=== PATIENT | male | born 1970 | race Caucasian/White ===

== ENCOUNTER 2016-10-11 05:29 | Emergency (ER) | payer BC, OTHER ==
[2016-10-11] MEDS ORDERED: Aspirin Low Dose CHEW TAB* 81 MG PO ONE (05:54)
--- NOTE | 2016-10-11 06:06 | ED ---
I, Ron,Domo, scribed for Tevin Conde MD on 10/11/16 at 0557 . HPI Chest Pain - HPI Summary HPI Summary: This 46 y/o male presents to ED for mild diffuse CP since yesterday PM. CP is constant, waxing and waning, and currently rated 2/10. Pt took x2 baby ASA yesterday with little relief. Pt reports similar episode of CP in 1999 after which pt was prescribed with Accupril and NTG patch. He discontinued these medications in 2007. PMHx includes HTN that is currently well controlled, although pt expressed concern about some elevated blood pressure in last couple of weeks. He currently does not have primary care, and reports that last time he visited his regular doctor was October 2015. Plan of care involving bloodwork with cardiac enzyme is discussed with pt, and he is agreeable at this time. - History of Current Complaint Chief Complaint: EDChestPainROMI Time Seen by Provider: 10/11/16 05:30 Hx Obtained From: Patient, Medical Records Onset/Duration: Started Days Ago, Atraumatic, Still Present Timing: Constant Pain Intensity: 2 Pain Scale Used: 0-10 Numeric Chest Pain Location: Diffuse Chest Pain Radiates: No Character: Dull/Aching Aggravating Factor(s): Nothing Alleviating Factor(s): Nothing Associated Signs and Symptoms: Positive: Chest Pain. Negative: Shortness of Breath - Allergy/Home Medications Allergies/Adverse Reactions: Allergies Allergy/AdvReac Type Severity Reaction Status Date / Time Indomethacin Allergy Severe Headache Verified 01/09/16 09:10 Lisinopril Allergy See Comment Verified 12/11/15 20:13 PMH/Surg Hx/FS Hx/Imm Hx Endocrine/Hematology History: Denies: Hx Diabetes, Hx Thyroid Disease Cardiovascular History: Reports: Hx Hypertension - now controlled Denies: Hx Congestive Heart Failure, Hx Deep Vein Thrombosis, Hx Myocardial Infarction, Hx Pacemaker/ICD Respiratory History: Denies: Hx Asthma, Hx Chronic Obstructive Pulmonary Disease (COPD), Hx Lung Cancer, Hx Pneumonia, Hx Pulmonary Embolism GI History: Denies: Hx Gall Bladder Disease, Hx Gastrointestinal Bleed, Hx Ulcer, Hx Urosepsis History: Denies: Hx Kidney Stones, Hx Renal Disease Neurological History: Denies: Hx Dementia, Hx Migraine, Hx Seizures, Hx Transient Ischemic Attacks (TIA) Psychiatric History: Denies: Hx Anxiety, Hx Depression, Hx Schizophrenia, Hx Bipolar Disorder - Surgical History Surgery Procedure, Year, and Place: colonscopy x2; wisdom teeth Infectious Disease History: No Infectious Disease History: Denies: Hx Clostridium Difficile, Hx Hepatitis, Hx Human Immunodeficiency Virus (HIV), Hx of Known/Suspected MRSA, Hx Shingles, Hx Tuberculosis, Hx Known/ Suspected VRE, Hx Known/Suspected VRSA, History Other Infectious Disease, Traveled Outside the [place] in Last 30 Days - Family History Known Family History: Positive: Blood Disorder - Possible bleeding disorder in father, but at the time he had colon CA Negative: Seizure Disorder - Social History Alcohol Use: Rare Hx Substance Use: No Substance Use Type: Reports: None Hx Tobacco Use: No Smoking Status (MU): Never Smoked Tobacco Have You Smoked in the Last Year: No Review of Systems Negative: Fever Positive: Chest Pain Negative: Shortness Of Breath Negative: Anxious All Other Systems Reviewed And Are Negative: Yes Physical Exam Triage Information Reviewed: Yes Vital Signs On Initial Exam: Initial Vitals Temp Pulse Resp BP Pulse Ox 97.5 F 57 15 156/95 100 10/11/16 05:36 10/11/16 05:36 10/11/16 05:36 10/11/16 05:36 10/11/16 05:36 Vital Signs Reviewed: Yes Appearance: Positive: No Pain Distress - midly anxioius, Thin Skin: Positive: Warm Head/Face: Positive: Normal Head/Face Inspection Eyes: Positive: MARICEL ENT: Positive: Hearing grossly normal Neck: Positive: Supple Respiratory/Lung Sounds: Positive: Clear to Auscultation, Breath Sounds Present Cardiovascular: Positive: RRR Abdomen Description: Positive: Nontender, Soft Bowel Sounds: Positive: Present Musculoskeletal: Positive: Strength/ROM Intact Neurological: Positive: Sensory/Motor Intact, Alert, Oriented to Person Place, Time AVPU Assessment: Alert Diagnostics - Vital Signs Vital Signs Temp Pulse Resp BP Pulse Ox 10/11/16 05:36 97.5 F 57 15 156/95 100 - Laboratory Result Diagrams: 10/11/16 05:55 10/11/16 05:55 Lab Statement: Any lab studies that have been ordered have been reviewed, and results considered in the medical decision making process. - Radiology CXR Radiology Interpretation Completed By: ED Physician - See EMR for official reading - EKG 0537 Cardiac Rate: Bradycardia - 52 bpm EKG Rhythm: Sinus Bradycardia Re-Evaluation - Re-Evaluation First Eval Re-Evaluation Time: 06:48 - results d/w pt Change: Improved Chest Pain Course/Dx - Diagnoses Provider Diagnoses: Chest pain Discharge - Discharge Plan Condition: Stable Disposition: HOME Patient Education Materials: Chest Pain (ED) Referrals: [facility] [Outside] - 2 Days The documentation as recorded by the Ron keller Soohyun accurately reflects the service I personally performed and the decisions made by me, Tevin Conde MD.
[2016-10-11 06:26] LABS: Hematocrit 43 % (42-52); Hemoglobin 14.6 g/dl (14.0-18.0); Mean Corpuscular HGB Conc 34 g/dl (31-36); Mean Corpuscular Hemoglobin 32 pg (27-31); Mean Corpuscular Volume 93 fL (80-94); Mean Platelet Volume 8 um3 (7.4-10.4); Red Blood Count 4.58 10^6/ul (4.0-5.4); Red Cell Distribution Width 13 % (10.5-15)
[2016-10-11 06:38] LABS: Albumin 4.4 g/dL (3.2-5.2); BUN/Creatinine Ratio 17.7 (8-20); Calcium 9.6 mg/dL (8.6-10.3); Potassium 3.4 mmol/L (3.5-5.0); Total Bilirubin 0.9 mg/dL (0.2-1.0); Total Protein 7.4 g/dL (6.4-8.9)
[2016-10-11 06:39] LABS: Troponin I 0.01 ng/mL (<0.04)
[2016-10-11 06:48] VITALS: BP 125/78
--- NOTE | 2016-10-11 07:58 | RAD ---
INDICATION: Chest pain COMPARISON: Similar chest x-ray dated August 03, 2012 TECHNIQUE: PA and lateral views of the chest were obtained. FINDINGS: The heart and mediastinum are normal in size and contour. The lungs are grossly clear. There is no evidence of large pleural effusion. Visualized bones are normal for the patient's age. There is no radiographic evidence of free air beneath the diaphragm IMPRESSION: No radiographic evidence of acute cardiopulmonary disease.
== END 2016-10-11 06:48 | disposition home or self-care (01) ==
LOC: ED 05:29
DX: R07.9 Chest pain, unspecified (principal); Z86.79 Personal history of other diseases of the circulatory system
CPT/HCPCS: 36415; 71020; 80053; 83605; 84484; 85025; 93005; 99283; A9270-GY

== ENCOUNTER 2016-10-13 07:08 | Observation (INO) | payer BC, OTHER ==
[2016-10-13] MEDS ORDERED: Aspirin Low Dose CHEW TAB* 81 MG PO ONE (07:32)
[2016-10-13 07:52] LABS: Hematocrit 42 % (42-52); Hemoglobin 14.6 g/dl (14.0-18.0); Mean Corpuscular HGB Conc 35 g/dl (31-36); Mean Corpuscular Hemoglobin 32 pg (27-31); Mean Corpuscular Volume 93 fL (80-94); Mean Platelet Volume 8 um3 (7.4-10.4); Red Blood Count 4.49 10^6/ul (4.0-5.4); Red Cell Distribution Width 12 % (10.5-15); White Blood Count 6.7 10^3/ul (3.5-10.8)
[2016-10-13 08:17] LABS: Albumin 4.4 g/dL (3.2-5.2); BUN/Creatinine Ratio 12.4 (8-20); Calcium 9.6 mg/dL (8.6-10.3); EGFR African American 106.7 (>60); Magnesium 1.9 mg/dL (1.9-2.7); Potassium 4.2 mmol/L (3.5-5.0); Total Bilirubin 0.8 mg/dL (0.2-1.0); Total Protein 7.4 g/dL (6.4-8.9)
[2016-10-13] MEDS ORDERED: Nitroglycerin TAB 0.4 MG* 0.4 MG TAB SL PRN (09:23)
[2016-10-13] MEDS ORDERED: PROCHLORPERAZINE INJ 5 MG/ML 2 ML VIAL IV PRN (09:23)
[2016-10-13] MEDS ORDERED: Acetaminophen TAB* 325 MG PO PRN (09:23)
--- NOTE | 2016-10-13 12:25 | ED ---
Francis Bah Salem, scribed for Bayron Rivera MD on 10/13/16 at 0956 . HPI Chest Pain - HPI Summary HPI Summary: Patient is a 46 y/o male who presents to the ED with CP since this morning. He reports waking up at 10pm with SOB and at 0100 with throbbing CP for an hour and a half. Pain did not radiate and is alleviated by standing He states he took Aspirin 81 mg at 0200 and one sometime after that. He reports his pain then returned at 5am. He denies any recent long travels. Pt was in the hospital 2 days ago. - History of Current Complaint Chief Complaint: EDChestPainROMI Time Seen by Provider: 10/13/16 08:02 Hx Obtained From: Patient Onset/Duration: Started Hours Ago Initial Severity: Moderate Current Severity: Moderate Pain Intensity: 2 Pain Scale Used: 0-10 Numeric Aggravating Factor(s): Nothing Alleviating Factor(s): Position - standing. Associated Signs and Symptoms: Positive: Chest Pain, Other: - Anxiety.. Negative: Fever - Allergy/Home Medications Allergies/Adverse Reactions: Allergies Allergy/AdvReac Type Severity Reaction Status Date / Time Indomethacin Allergy Severe Headache Verified 01/09/16 09:10 Lisinopril Allergy See Comment Verified 12/11/15 20:13 PMH/Surg Hx/FS Hx/Imm Hx Endocrine/Hematology History: Denies: Hx Diabetes, Hx Thyroid Disease Cardiovascular History: Reports: Hx Hypertension - now controlled Denies: Hx Congestive Heart Failure, Hx Deep Vein Thrombosis, Hx Myocardial Infarction, Hx Pacemaker/ICD Respiratory History: Denies: Hx Asthma, Hx Chronic Obstructive Pulmonary Disease (COPD), Hx Lung Cancer, Hx Pneumonia, Hx Pulmonary Embolism GI History: Denies: Hx Gall Bladder Disease, Hx Gastrointestinal Bleed, Hx Ulcer, Hx Urosepsis History: Denies: Hx Kidney Stones, Hx Renal Disease Neurological History: Denies: Hx Dementia, Hx Migraine, Hx Seizures, Hx Transient Ischemic Attacks (TIA) Psychiatric History: Denies: Hx Anxiety, Hx Depression, Hx Schizophrenia, Hx Bipolar Disorder - Surgical History Surgery Procedure, Year, and Place: colonscopy x2; wisdom teeth Infectious Disease History: No Infectious Disease History: Denies: Hx Clostridium Difficile, Hx Hepatitis, Hx Human Immunodeficiency Virus (HIV), Hx of Known/Suspected MRSA, Hx Shingles, Hx Tuberculosis, Hx Known/ Suspected VRE, Hx Known/Suspected VRSA, History Other Infectious Disease, Traveled Outside the [place] in Last 30 Days - Family History Known Family History: Positive: Cardiac Disease - Mother. , Hypertension - father, Blood Disorder - Possible bleeding disorder in father, but at the time he had colon CA, Other - CA - father. Negative: Seizure Disorder - Social History Alcohol Use: Rare Hx Substance Use: No Substance Use Type: Reports: None Hx Tobacco Use: No Smoking Status (MU): Never Smoked Tobacco Have You Smoked in the Last Year: No Review of Systems Negative: Fever Positive: Chest Pain All Other Systems Reviewed And Are Negative: Yes Physical Exam - Summary Physical Exam Summary: The patient is well-nourished in no acute distress and in no acute pain. The skin is warm and dry and skin color reflects adequate perfusion. HEENT: The head is normocephalic and atraumatic. The pupils are equal and reactive. The conjunctivae are clear and without drainage. Nares are patent and without drainage. Mouth reveals moist mucous membranes and the throat is without erythema and exudate. The external ears are intact. The ear canals are patent and without drainage. The tympanic membranes are intact. Neck is supple with full range of motion and non-tender. There are no carotid bruits. Respiratory: Chest is non-tender. Lungs are clear to auscultation. No reproducible CP. Cardiovascular: Heart is regular rate and rhythm. There is no murmur or rub auscultated. There is no peripheral edema and pulses are symmetrical and equal. Abdomen: The abdomen is soft and non-tender. Musculoskeletal: There is no back pain noted. Extremities are non-tender with full range of motion. There is good capillary refill. There is no peripheral edema or calf tenderness elicited. Neurological: Patient is alert and oriented to person, place and time. The patient has symmetrical motor strength in all four extremities. Psychiatric: The patient has an appropriate affect and does not exhibit any depression, but is anxious. Triage Information Reviewed: Yes Vital Signs On Initial Exam: Initial Vitals Temp Pulse Resp BP Pulse Ox 96.9 F 54 20 123/83 100 10/13/16 07:16 10/13/16 07:16 10/13/16 07:16 10/13/16 07:16 10/13/16 07:16 Vital Signs Reviewed: Yes - Belle Coma Scale Coma Scale Total: 15 Diagnostics - Vital Signs Vital Signs Temp Pulse Resp BP Pulse Ox 10/13/16 07:33 52 15 100 10/13/16 07:31 141/78 10/13/16 07:16 96.9 F 54 20 123/83 100 - Laboratory Lab Results: Lab Results 10/13/16 10/13/16 10/13/16 Range/Units 07:40 07:40 07:40 WBC 6.7 (3.5-10.8) 10^3/ul RBC 4.49 (4.0-5.4) 10^6/ul Hgb 14.6 (14.0-18.0) g/dl Hct 42 (42-52) % MCV 93 (80-94) fL MCH 32 H (27-31) pg MCHC 35 (31-36) g/dl RDW 12 (10.5-15) % Plt Count 222 (150-450) 10^3/ul MPV 8 (7.4-10.4) um3 Neut % (Auto) 52.0 (38-83) % Lymph % (Auto) 36.3 (25-47) % George % (Auto) 7.3 (1-9) % Eos % (Auto) 3.8 (0-6) % Baso % (Auto) 0.6 (0-2) % Absolute Neuts (auto) 3.5 (1.5-7.7) 10^3/ul Absolute Lymphs (auto) 2.4 (1.0-4.8) 10^3/ul Absolute Monos (auto) 0.5 (0-0.8) 10^3/ul Absolute Eos (auto) 0.3 (0-0.6) 10^3/ul Absolute Basos (auto) 0 (0-0.2) 10^3/ul Absolute Nucleated RBC 0.01 10^3/ul Nucleated RBC % 0.1 Sodium 134 (133-145) mmol/L Potassium 4.2 (3.5-5.0) mmol/L Chloride 101 (101-111) mmol/L Carbon Dioxide 25 (22-32) mmol/L Anion Gap 8 (2-11) mmol/L BUN 12 (6-24) mg/dL Creatinine 0.97 (0.67-1.17) mg/dL Est GFR ( Amer) 106.7 (>60) Est GFR (Non-Af Amer) 83.0 (>60) BUN/Creatinine Ratio 12.4 (8-20) Glucose 101 H (70-100) mg/dL Lactic Acid 0.9 (0.5-2.0) mmol/L Calcium 9.6 (8.6-10.3) mg/dL Magnesium 1.9 (1.9-2.7) mg/dL Total Bilirubin 0.80 (0.2-1.0) mg/dL AST 26 (13-39) U/L ALT 23 (7-52) U/L Alkaline Phosphatase 61 (34-104) U/L Troponin I 0.00 (<0.04) ng/mL B-Natriuretic Peptide ( - 100) pg/mL Total Protein 7.4 (6.4-8.9) g/dL Albumin 4.4 (3.2-5.2) g/dL Globulin 3.0 (2-4) g/dL Albumin/Globulin Ratio 1.5 (1-3) 10/13/16 Range/Units 07:40 WBC (3.5-10.8) 10^3/ul RBC (4.0-5.4) 10^6/ul Hgb (14.0-18.0) g/dl Hct (42-52) % MCV (80-94) fL MCH (27-31) pg MCHC (31-36) g/dl RDW (10.5-15) % Plt Count (150-450) 10^3/ul MPV (7.4-10.4) um3 Neut % (Auto) (38-83) % Lymph % (Auto) (25-47) % George % (Auto) (1-9) % Eos % (Auto) (0-6) % Baso % (Auto) (0-2) % Absolute Neuts (auto) (1.5-7.7) 10^3/ul Absolute Lymphs (auto) (1.0-4.8) 10^3/ul Absolute Monos (auto) (0-0.8) 10^3/ul Absolute Eos (auto) (0-0.6) 10^3/ul Absolute Basos (auto) (0-0.2) 10^3/ul Absolute Nucleated RBC 10^3/ul Nucleated RBC % Sodium (133-145) mmol/L Potassium (3.5-5.0) mmol/L Chloride (101-111) mmol/L Carbon Dioxide (22-32) mmol/L Anion Gap (2-11) mmol/L BUN (6-24) mg/dL Creatinine (0.67-1.17) mg/dL Est GFR ( Amer) (>60) Est GFR (Non-Af Amer) (>60) BUN/Creatinine Ratio (8-20) Glucose (70-100) mg/dL Lactic Acid (0.5-2.0) mmol/L Calcium (8.6-10.3) mg/dL Magnesium (1.9-2.7) mg/dL Total Bilirubin (0.2-1.0) mg/dL AST (13-39) U/L ALT (7-52) U/L Alkaline Phosphatase (34-104) U/L Troponin I (<0.04) ng/mL B-Natriuretic Peptide 25 ( - 100) pg/mL Total Protein (6.4-8.9) g/dL Albumin (3.2-5.2) g/dL Globulin (2-4) g/dL Albumin/Globulin Ratio (1-3) Result Diagrams: 10/13/16 07:40 10/13/16 07:40 Lab Statement: Any lab studies that have been ordered have been reviewed, and results considered in the medical decision making process. - EKG 0726 EKG Interpretation: Sinus bradycardia @ [address] elevation. Normal axis. Chest Pain Course/Dx - Course Course Of Treatment: Pt has been here twice this week for CP, some exertional component. Nml EKG with no evidence of ST elevation. First troponin = 0.00. Will consult hospitalist for further evaluation to r/o PR. - Chest Pain Differential Diagnosis/HQI/PQRI: Acute PR, ACS, Angina, GI Disease, Other: - anxiety - Diagnoses Provider Diagnoses: CHEST PAIN,R/O ACS - Provider Notifications Discussed Care Of Patient With: Dr. Gee (hospitalist) @ [id number]. Discharge - Discharge Plan Condition: Stable Disposition: ADMITTED TO Health system documentation as recorded by the Francis keller Salem accurately reflects the service I personally performed and the decisions made by me, Bayron Rivera MD.
--- NOTE | 2016-10-13 12:55 | HP ---
HISTORY AND PHYSICAL: DATE OF ADMISSION: 10/13/16 TIME OF EVALUATION: 8:49 a.m. PRIMARY CARE PROVIDER: New primary care provider is Dr. Randy Oswald. CHIEF COMPLAINT: Chest pain. HISTORY OF PRESENT ILLNESS: Mr. Sanchez is a 46-year-old male with a past medical history of hypertension, diet controlled, who presented to the emergency room with complaints of chest pain. He states that the pain started 4 days ago, retrosternal, 3/10 intensity with no radiation, no alleviating or provoking factors. He states that he took a couple of aspirins with some relief and he describes a very stressful day at work. He went to bed feeling better, but the next day the pain happened again and he came to the emergency room for further evaluation. At that time, he had one troponin that was negative, and an EKG that showed no acute ischemic changes , and a chest x-ray that showed no radiographic evidence of acute cardiopulmonary disease. He was discharged home and he actually has an appointment to see Dr. Oswald on October 14. When he was discharged, he was feeling better and he actually went to the gym that same day. He was able to work out for 35 minutes on a stationary bike and he stated that he felt well enough. The next day, he returned to work and the episodes of chest pain resumed with the same characteristics. He got concerned and decided to come to the emergency room for further evaluation today. He denies palpitations, fever, chills, cough, or any significant dyspnea. He states that this morning, he felt a little short of breath but he realized that he was anxious because the pain had returned. He denies any recent traveling. No lower extremity edema. 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 He states that he was 60 pounds heavier at that time, and he had one episode of chest pain, but at that point his blood pressure was very high and he was told that he had "unstable angina." He was treated with medications and has lost a significant amount of weight since then and he states that now he only controls his blood pressure with diet, and even during these episodes of chest pain, he measured his blood pressure at home and he was normal. PAST MEDICAL HISTORY: Diet-controlled hypertension. MEDICATION LIST: None. ALLERGIES: With INDOMETHACIN, he experienced headache and with LISINOPRIL, he had "a throbbing in his neck." FAMILY HISTORY: Patient's father had hypertension and passed of colon cancer. Uncle had 3-vessel CABG at age 57. SOCIAL HISTORY: He denies any tobacco or drug use. He states that while in college, he used steroids and tried marijuana but denies any recent drug use. He states that sporadically he drinks beer, the last one was around Thanksgiving. REVIEW OF SYSTEMS: A 14-point review of systems was performed and all the pertinent positive and negative findings are in HPI. PHYSICAL EXAMINATION VITAL SIGNS: Temperature 96.9, heart rate is 53, respiratory rate is 12, oxygen saturation is 100% on room air, blood pressure is 131/80. GENERAL: The patient is a pleasant gentleman, lying in the ER stretcher, in no acute distress. HEENT: Pupils are equal. Moist mucous membranes. CVS: Normal S1, S2. Regular rate and rhythm. CHEST: Breath sounds present bilaterally with no added sounds. ABDOMEN: Soft, nontender, nondistended. Bowel sounds are present. EXTREMITIES: No edema. NEUROLOGIC: He is alert, awake, and oriented x3. He is able to move all 4 extremities. LABORATORY IMAGING DATA: The patient had a CBC that showed a WBC of 6.7, hemoglobin of 14.6, hematocrit 42, platelets of 222 with 52% neutrophils. Chemistries showed a sodium of 134, potassium of 4.2, chloride of 101, bicarb of 25, BUN of 12, creatinine of 0.9, glucose of 101, lactic acid of 0.9, calcium 9.6, magnesium of 1.9. LFT's are normal. Troponin is 0. EKG done on October 13 at 7:26 showed sinus bradycardia at 49 beats per minute with no significant ST-T changes. There is no significant change when compared to his prior EKG from October 11. There may be a suggestion of early repolarization. ASSESSMENT AND PLAN: Mr. Sanchez is a 46-year-old male with a past medical history of diet-controlled hypertension who presents to the emergency room for the second time in 3 days with complaints of retrosternal chest pain. 1. Chest pain, rule out acute coronary syndrome. The patient's chest pain is atypical at this point, especially because he has had chest pain on and off for 4 days with no change in his enzymes or EKG. He denies eating anything different, his pain is not related to exercise. He was actually able to exercise at the gym with no change in his pain, and he states that he is on this very intense regimen of exercise. At this point, he is going to be admitted to rule out acute coronary syndrome and we are going to push to stress test. He actually has a first-time appointment with Dr. Oswald tomorrow to establish primary care. 2. DVT prophylaxis, the patient has a score of 2 on the DVT Prophylaxis Risk Assessment Guide, and he will be started on subcutaneous heparin. 3. Code status is full. TIME SPENT: Approximately 50 minutes was spent with the patient interview, medical records review, physical examination to complete the admission. More than half this time was spent [id number] with the patient in coordination of care. CC: Dr. Randy Oswald* [id number]/[facility] #: [id number] THANG
[2016-10-13] MEDS ORDERED: Enoxaparin(*) 80 MG/0.8 ML SYR SUBCUT SCH (13:00)
--- NOTE | 2016-10-13 13:06 | PN ---
Hospitalist Progress Note ADDENDUM Called by RN - 2nd troponin 1.49, with no c/o chest pain at this time. Will start Lovenox. Cardiology consult requested with Dr. Schafer.
[2016-10-13] MEDS ORDERED: Heparin DRIP 25,000 UNITS(*) 25,000 UNITS/500 ML BAG IVPB SCH (13:45)
[2016-10-13] MEDS ORDERED: Heparin VIAL(*) 5000 UNITS/ML VIAL (FIVE THOUSAND) IV SCH (14:00)
[2016-10-13] MEDS ORDERED: Heparin VIAL(*) 5000 UNITS/ML VIAL (FIVE THOUSAND) SUBCUT SCH (14:00)
[2016-10-13 14:19] LABS: Hematocrit 44 % (42-52); Hemoglobin 14.9 g/dl (14.0-18.0); Mean Corpuscular HGB Conc 34 g/dl (31-36); Mean Corpuscular Hemoglobin 31 pg (27-31); Mean Corpuscular Volume 92 fL (80-94); Mean Platelet Volume 8 um3 (7.4-10.4); Red Blood Count 4.75 10^6/ul (4.0-5.4); Red Cell Distribution Width 13 % (10.5-15); White Blood Count 7.5 10^3/ul (3.5-10.8)
--- NOTE | 2016-10-13 16:48 | ECHO ---
Patient: JOHNATHAN SHULTZ [facility] Rec#: [id number] : 1970 Date: 10/13/2016 Age: 46y Height: 170.18 cm / 67.0 in Weight: 75.75 kg / 167.0 lbs Sex: M BSA: 1.87 Room#: [facility] Admit Date#: 10/13/2016 Type: Inpatient Referring: Jessika Gee MD Reading: Jose G Zamora MD Court Officer: Mabel Salcido [facility] Transthoracic Echocardiogram Indication: CP BP: 118/84 HR: 65 Rhythm: NSR Findings Technical Comments: The study quality is fair. Left Ventricle: The left ventricular chamber size is normal. Global left ventricular wall motion and contractility are within normal limits. There is normal left ventricular systolic function. The estimated ejection fraction is 55-60%. Normal left ventricular diastolic filling is observed. Left Atrium: The left atrial chamber size is normal. Right Ventricle: The right ventricular cavity size is normal. The right ventricular global systolic function is normal. Right Atrium: The right atrial cavity size is normal. There is evidence of an atrial septal aneurysm. Aortic Valve: The aortic valve is trileaflet. There is no evidence of aortic regurgitation. There is no evidence of aortic stenosis. Mitral Valve: The mitral valve leaflets are mildly thickened. There is a trace of mitral regurgitation. There is no evidence of mitral stenosis. Tricuspid Valve: The tricuspid valve leaflets are normal. There is trace tricuspid regurgitation. The tricuspid regurgitant jet is centrally directed. No pulmonary hypertension is noted. There is no tricuspid stenosis. Pulmonic Valve: The pulmonic valve appears normal. There is trace to mild pulmonic regurgitation. There is no pulmonic stenosis. Pericardium: The pericardium appears normal. Aorta: There is no dilatation of the ascending aorta. There is no dilatation of the aortic arch. There is mild dilatation of the aortic root. Pulmonary Artery: The main pulmonary artery appears normal. Venous: The venous system is not well visualized. Conclusions Global left ventricular wall motion and contractility are within normal limits. There is normal left ventricular systolic function. The estimated ejection fraction is 55-60%. No significant valvular disease: There is a trace of mitral regurgitation. There is trace tricuspid regurgitation. There is trace to mild pulmonic regurgitation. Measurements Name Value Normal Range RVIDd (AP) 2D 2.5 cm (0.9 - 2.6) RVDdMajor (2D) 3.4 cm (2.2 - 4.4) RAd ISD 4CH 5.8 cm (3.4 - 4.9) RA (A4C)W 3.9 cm (2.9 - 4.6) IVSd (2D) 1.1 cm (0.6 - 1) LVPWd (2D) 0.9 cm (0.6 - 1) LVIDd (2D) 5.1 cm (3.6 - 5.4) LVIDs (2D) 3.4 cm - LV FS (2D) 34 % (25 - 45) Aortic Annulus 2.6 cm (1.4 - 2.6) Ao root diameter (2D) 3.7 cm (2.1 - 3.5) Ascending Ao 3.2 cm (2.1 - 3.4) Aortic arch 2.3 cm (1.8 - 3.4) Descending Ao 0.8 cm - LA dimension (AP) 2D 3.5 cm (2.3 - 3.8) LAd ISD 4CH 4.9 cm (2.9 - 5.3) LA ISD 4CH W 3.4 cm (2.5 - 4.5) Name Value Normal Range LA ESV SP 4CH (A/L) 30 ml - LA ESV SP 2CH (A/L) 45 ml - LA ESV BP (A/L) 38 ml - LA ESV BP (A/L) index 20.55 ml/m2 - LA ESV SP 4CH (MOD) 27 ml - LA ESV SP 2CH (MOD) 42 ml - Name Value Normal Range MV E-wave Vmax 0.5 m/sec - MV deceleration time 211 msec - MV A-wave Vmax 0.5 m/sec - MV E:A ratio 1.05 ratio - LV septal e' Vmax 0.1 m/sec - LV lateral e' Vmax 0.12 m/sec - LV E:e' septal ratio 5 ratio - LV E:e' lateral ratio 4.17 ratio - Name Value Normal Range AV Vmax 1.3 m/sec - AV VTI 26 cm - AV peak gradient 6.35 mmHg - AV mean gradient 2.95 mmHg - LVOT Vmax 0.9 m/sec - LVOT VTI 19 cm - LVOT peak gradient 3.15 mmHg - LVOT mean gradient 1.23 mmHg - Name Value Normal Range TR Vmax 2.1 m/sec - TR peak gradient 18 mmHg - RAP 8 mmHg - RVSP 26 mmHg - Name Value Normal Range PV Vmax 0.9 m/sec - PV peak gradient 2.96 mmHg -
--- NOTE | 2016-10-13 17:03 | CONS ---
CARDIOLOGY CONSULTATION: DATE OF CONSULT: 10/13/16 INDICATION FOR THE CONSULT: The patient presents with chest discomfort, now with abnormal troponin on second sample, assessed for acute coronary syndrome. HISTORY OF PRESENT ILLNESS: The patient is a pleasant 46-year-old gentleman with no prior known cardiac history. He specifically denies any history of myocardial infarction, congestive heart failure, or significant heart rhythm disturbance. The patient was in his usual state of health back on Monday, 10/10, and he was at work around 1:30. 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 It waxed and waned on and off. He is not sure if it ever went away and generally he is a poor historian. At 4 o'clock, he left. He went and did some cardio exercising at the [employer] club and he had slight discomfort. In the evening, he noticed when he was just sitting talking, he had more discomfort, so he took 2 baby aspirin. He was able to go to bed. On Monday morning, he had recurrent episode symptoms and he presented to the emergency room on 10/11/16. At that time, he had laboratory results that revealed a troponin of 0.01. He was not cycled at that time. His EKG at that time had shown sinus bradycardia with a reported prolonged AK interval. There were no reported acute ST-T wave changes with a question of possible early repolarization findings. He subsequently was discharged home. He did okay the rest of the evening and on Monday, he was feeling better, checked his blood pressure and took a baby aspirin and went to work. That evening, he was feeling well enough to start walking around [place] [employer] for some 50 minutes. With doing that, he was not sure if he had mild symptoms, but clearly they were not severe. He then went to bed early on Monday evening, woke up at 10 p.m., felt somewhat short of breath and tried to calm down. He was able to get back to bed and at 1 a.m., re-awoke with pulsating sensation in his chest with chest discomfort. By 3 a.m., it was getting worse. He took 2 baby aspirin. He then woke up at 5 a.m. and noted the discomfort is still mildly present, so as such, he went to the emergency room yet again. In the emergency room, his initial EKG failed to reveal any acute changes and his laboratory results from today revealed a troponin of 0.001. He subsequently had a repeat troponin at 11 :31. It was found to be 1.49, significantly elevated. Of note, he did not have any total CPK or MB's with any of these samples. His B-natriuretic peptide was 25. Cardiac risk factors included negative history of hypertension, negative history of smoking, no family history of early coronary artery disease, no diabetes, and he does not have increased cholesterol. PAST MEDICAL HISTORY: No significant past medical history. PAST SURGICAL HISTORY: No significant surgical history other than cosmetic surgery on the lip. ALLERGIES: He gets headaches with INDOMETHACIN. He gets some shortness of breath with IBUPROFEN. FAMILY HISTORY: Father had hypertension and colon cancer. Mother had hypertension. One brother had sleep apnea and the other brother has no major illnesses. REVIEW OF SYSTEMS: As per the H and P with no additional findings. CONTINUATION ADDENDUM: PHYSICAL EXAMINATION: When I see him, neck was supple. No increased JVP. Carotid with good upstroke and volume without bruits. Conjunctivae are pink. Sclerae clear. Lungs reveal no accessory muscle usage. He has good excursion. Lungs were clear to A and P. Heart revealed no visible heaves. No palpable heaves or thrills. Normal S1, S2. No S3, S4, gallop. No significant systolic or diastolic murmur. Abdomen is soft, nontender without organomegaly. Extremities are without clubbing, cyanosis, or tyson pitting edema. Peripheral pulses intact. Neuro: The patient is alert, oriented with normal mentation. Musculoskeletal: The patient with normal gait. Psychiatric: The patient with normal affect. LABORATORY DATA AND DIAGNOSTIC STUDIES: Laboratory results from today reveal a sodium of 134, potassium 4.2, chloride 101, bicarb 25, BUN and creatinine 12 and 0.97, glucose of 101, lactic acid level 0.9. SGOT is 26. SGPT is 23. Troponin is 0.00 and 1.49 respectively. Total protein 7.4, albumin 4.4. Hemoglobin and hematocrit 14.6 and 42 with a platelet count of 222,000. White count 6700. Chest x-ray report from the evaluation from 2 days ago on 10/11/16 revealed no acute pathology. OVERALL ASSESSMENT: Mr. Sanchez now presents with symptoms of chest discomfort , some qualities of which are disconcerting in nature while other qualities seem quite atypical in nature. His EKG's have not shown any definitive evidence for ischemia and as such, at this point in time given this troponin, we will repeat the EKG and we will repeat a drawing of his troponin stat now. We will look if there are significant changes on his EKG that are progresssive, and if so , then consideration for cardiac catheterization will be entertained. He is currently pain free and we will place him on heparin, and keep him on aspirin, and maybe even Brilinta therapy. If, however, repeat troponin comes back negative, then we would have to consider it as a potential lab error. In the meantime, we will check a CPK and MB off the second troponin sample which was elevated to see if they corroborate this finding. The risks and benefits of cardiac catheterization were explained to the patient at length and he understands them and will be waiting to see if we will need to proceed. Thank you very much for asking us to see and we will follow him with you. CC: Randy Oswald MD * [id number]/[facility] #: [id number] Tre- [id number]/CPS #: [id number] THANG
--- NOTE | 2016-10-13 17:11 | CONS ---
CC: Randy Oswald MD CONSULTATION NOTE:* ADDENDUM: PHYSICAL EXAMINATION: Neck was supple. No increased JVP. Carotid with good upstroke and volume without bruits. Conjunctivae are pink. Sclerae clear. Lungs reveal no accessory muscle usage. He has good excursion. Lungs were clear to A and P. Heart revealed no visible heaves. No palpable heaves or thrills. Normal S1, S2. No S3, S4, gallop. No significant systolic or diastolic murmur. Abdomen is soft, nontender without organomegaly. Extremities are without clubbing, cyanosis, or tyson pitting edema. Peripheral pulses intact. Neuro: The patient is alert, oriented with normal mentation. Musculoskeletal: The patient with normal gait. Psychiatric: The patient with normal affect. LABORATORY DATA AND DIAGNOSTIC STUDIES: Laboratory results from today reveal a sodium of 134, potassium 4.2, chloride 101, bicarb 25, BUN and creatinine 12 and 0.97, glucose of 101, lactic acid level 0.9. SGOT is 26. SGPT is 23. Troponin is 0.00 and 1.49 respectively. Total protein 7.4, albumin 4.4. Hemoglobin and hematocrit 14.6 and 42 with a platelet count of 222,000. White count 6700. Chest x-ray report from the evaluation from 2 days ago on 10/11/16 revealed no acute pathology. OVERALL ASSESSMENT: Mr. Sanchez now presents with symptoms of chest discomfort , some qualities of which are disconcerting in nature while other qualities seem quite atypical in nature. His EKG's have not shown any definitive evidence for ischemia and as such, at this point in time given this troponin, we will repeat the EKG and we will repeat a drawing of his troponin stat now. We will look if there are significant changes on his EKG that are progressing, then consideration for cardiac catheterization will be entertained. He is currently pain free and we will place him on heparin, aspirin, and maybe even Brilinta therapy. If, however, repeat troponin comes back negative, then we would have to consider it as a potential lab error, although the likelihood is less likely. In the meantime, we will check a CPK and MB off the second troponin sample which was elevated to see if they corroborate this finding. The risks and benefits of cardiac catheterization were explained to the patient at length and he understands them and will be waiting to see if we will proceed. Thank you very much for asking us to see and we will follow him with you. [id number]/[facility] #: [id number] THANG
[2016-10-13] MEDS ORDERED: Simethicone CHEW TAB* 80 MG PO PRN (19:00)
[2016-10-13] MEDS: Heparin VIAL(*) 5000 UNITS/ML VIAL (FIVE THOUSAND) SUBCUT SCH (22:10)
[2016-10-14] MEDS: Heparin VIAL(*) 5000 UNITS/ML VIAL (FIVE THOUSAND) SUBCUT SCH (05:14)
[2016-10-14] MEDS ORDERED: Aspirin EC Low Dose* 81 MG TAB.EC PO SCH (09:00)
--- NOTE | 2016-10-14 09:50 | RAD ---
Edited for charges. INDICATION: Chest pain. COMPARISON: There are no prior studies available for comparison. Technique: A single day myocardial perfusion stress study was performed. Initially a resting study was performed. The patient was given an intravenous injection of 10.9 mCi of technetium 99m tetrofosmin and and the heart was imaged in multiple projections. The patient returned later in the day and under the direction of Dr. Zamora, the patient was exercised to a peak heart rate of 151 beats per minute which was 91% of the maximum predicted heart rate. Subsequently the patient was given intravenous injection of 25.3 mCi of technetium 99m tetrofosmin and the heart was imaged in multiple projections. Images were reconstructed in the axial, sagittal and coronal planes and in a 3- D format. FINDINGS: There appears to be mild hypokinesis with more focal hypokinesis in the septum. The left ventricular ejection fraction is calculated to be 57%. Review of the images demonstrates a small area of decreased activity present in the anterior wall on the post exercise images which appears normal on the resting images suggestive of a small area of ischemia. IMPRESSION: FINDINGS SUGGESTIVE OF A SMALL AREA OF ISCHEMIA IN THE ANTERIOR WALL. ASSESSMENT: Low risk. Based on imaging criteria from ACC/AHA 2002 Guideline Update for the Management of Patients With Chronic Stable Angina Table 23. Noninvasive Risk Stratification. MTDD
[2016-10-14] MEDS ORDERED: Metoprolol Succinate XL TAB* 25 MG PO ONE (11:54)
[2016-10-14 13:25] VITALS: BP 127/82
--- NOTE | 2016-10-15 05:44 | DS ---
CC: Randy Oswald MD; Jose G Zamora MD DISCHARGE SUMMARY: DATE OF ADMISSION: 10/13/16 DATE OF DISCHARGE: 10/14/16 NEW PRIMARY CARE PROVIDER: Randy Oswald MD INSTRUMENT REPAIRER: Jose G Zamora MD DISCHARGE DIAGNOSES: 1. Atypical chest pain, acute coronary syndrome ruled out, but likely abnormal stress test. 2. Possible migraine. 3. Diet-controlled hypertension. MEDICATION LIST: The patient is on many itjx-spj-mmtznbv supplements as follows: 1. Glucosamine/chondroitin 1 capsule p.o. daily. 2. Grape seed 1 capsule p.o. daily. 3. Magnesium 250 mg p.o. daily. 4. Ginkgo biloba 1 tablet p.o. daily. 5. Multivitamin 1 tablet p.o. daily. 6. Dodge-3 1000 mg p.o. daily. 7. Vitamin B complex 1 capsule p.o. daily. New Medications: 1. Aspirin 81 mg p.o. daily. 2. Metoprolol succinate 12.5 mg p.o. daily. HOSPITAL COURSE: Mr. Sanchez is a 46-year-old male with a past medical history as stated above mo t presented to the emergency room with complaints of chest pain that had started 4 days prior to the admission, 3/10 in intensity, retrosternal, and not associated with exertion. For more details abo ut his presentation, I refer you to his history and physical. The patient was admitted to telemetry floor and his initial troponin was 0, but there was an equivoc al result on his second troponin due to an issue with laboratory machine. One result was reported a t 1.49. So there was this troponin found to be 1.49 and at that point, a cardiology consultation was request ed with Dr. Zamora. His impression was the patient presented with symptoms of chest discomfort, liyah e qualities of which are disconcerting in nature while other qualities seem quite atypical. His EKG has not shown any definitive evidence for ischemia and as such his recommendation was to repeat EKG s and repeat troponin with CPKs and CK-MBs. Later on, his troponin results were amended and all 3 w ere negative with no change on his CPK or CK-MB. A transthoracic echocardiogram showed an ejection fraction of 55% to 60% with global left ventricula r wall motion and contractility within normal limits. The patient underwent a nuclear medicine stress test that shows findings suggestive of small area of ischemia in the anterior wall. Dr. Zamora saw the patient in followup and during the exercise part of the stress test, the patient was able to exercise for 14 minutes with no symptoms and no EKG galilea nges. Dr. Zamora's recommendation was to start aspirin, low-dose beta-del that the tolerated we ll while in the hospital with no significant bradycardia or symptoms and the patient will follow up with him on November 14 at 10:20 a.m. The patient also had complaints of episodes of throbbing headache preceded by the smell of blood. 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 The patient is being discharged on beta- del at this point, but this can be further explored by his primary care provider as outpatient. The patient is medically stable for discharge at this time. PHYSICAL EXAMINATION: General: The patient is a pleasant gentleman, sitting up in bed, in no acute distress. Vital Signs: Temperature 97.8, heart rate is 67, respiratory rate is 18, oxygen saturat ion is 99% on room air, and blood pressure is 127/82. CVS: Normal S1, S2. Regular rate and rhythm . Chest: Breath sounds present bilaterally with no added sounds. Extremities: No edema. Neuro: He is alert, awake, and oriented x3. Able to move all 4 extremities. DIET: Heart-healthy diet. ACTIVITIES: As tolerated. DISPOSITION: To home. STATUS WHILE IN THE HOSPITAL: Observation. Please keep in mind this is a summarized version of this patient's hospital stay. If you need more i nformation, please feel free to call me at or please obtain the full medical records. TIME SPENT: Approximately 45 minutes were spent to complete this discharge. [id number]/[facility] #: [id number]
== END 2016-10-14 15:50 | disposition home or self-care (01) ==
LOC: ED 07:08 → MEDTELE 08:49
PROVIDERS: ADMIT Internal Medicine; ATTEND Internal Medicine
DX: R07.89 Other chest pain (principal); I10 Essential (primary) hypertension; R06.02 Shortness of breath; R00.1 Bradycardia, unspecified; Z79.899 Other long term (current) drug therapy; Z79.82 Long term (current) use of aspirin; Z88.8 Allergy status to other drugs, medicaments and biological substances
CPT/HCPCS: 36415; 78452; 80053; 82550; 82553; 83605; 83735; 83880; 84484; 84520; 85025; 85730; 93005; 93017; 93306; 96365; 96372; 99283; A9270-GY; A9502; G0378; J1644

== ENCOUNTER 2016-10-15 10:32 | Emergency (ER) | payer BC ==
[2016-10-15 11:50] LABS: Hematocrit 42 % (42-52); Hemoglobin 14.1 g/dl (14.0-18.0); Mean Corpuscular HGB Conc 34 g/dl (31-36); Mean Corpuscular Hemoglobin 32 pg (27-31); Mean Corpuscular Volume 93 fL (80-94); Mean Platelet Volume 8 um3 (7.4-10.4); Red Blood Count 4.46 10^6/ul (4.0-5.4); Red Cell Distribution Width 13 % (10.5-15); White Blood Count 5.4 10^3/ul (3.5-10.8)
[2016-10-15 12:06] LABS: Albumin 4.3 g/dL (3.2-5.2); BUN/Creatinine Ratio 13.7 (8-20); Calcium 9.6 mg/dL (8.6-10.3); EGFR African American 100.7 (>60); EGFR Non-African American 78.3 (>60); Globulin 2.8 g/dL (2-4); Potassium 4.2 mmol/L (3.5-5.0); Total Bilirubin 0.6 mg/dL (0.2-1.0); Total Protein 7.1 g/dL (6.4-8.9)
[2016-10-15 12:45] VITALS: BP 126/87
--- NOTE | 2016-10-15 12:51 | ED ---
Taisha Bah Michael, scribed for Victoria Carney MD on 10/15/16 at 1119 . HPI Chest Pain - HPI Summary HPI Summary: 46 y/o male comes to the ED presenting with intermittent episodes of CP that started this morning at 0100 and worsened at 0530. The pt describes the CP as pounding, and he c/o a palpitation described as fluttering. The CP and palpitation were alleviated with movement. The pt also c/o SOB. He had a stress test one day ago which was negative. The pt was prescribed ASA and beta del. The PMHx is significant for HTN and insignificant for DM and hypercholesterolemia. There is no FHx of [place] before the age of 55. - History of Current Complaint Chief Complaint: EDChestPainROMI Time Seen by Provider: 10/15/16 10:42 Hx Obtained From: Patient, Medical Records Onset/Duration: Started Hours Ago, Still Present Timing: Intermittent Initial Severity: Mild Current Severity: Mild Pain Intensity: 3 Pain Scale Used: 0-10 Numeric Character: Fluttering, Pounding Aggravating Factor(s): Nothing Alleviating Factor(s): Spontaneous Resolution Associated Signs and Symptoms: Positive: Chest Pain, Shortness of Breath, Palpitations - Additional Pertinent History Primary Care Physician: [id number] - Allergy/Home Medications Allergies/Adverse Reactions: Allergies Allergy/AdvReac Type Severity Reaction Status Date / Time Indomethacin Allergy Severe Headache Verified 10/15/16 10:36 Lisinopril Allergy See Comment Verified 10/15/16 10:36 PMH/Surg Hx/FS Hx/Imm Hx Endocrine/Hematology History: Denies: Hx Diabetes, Hx Thyroid Disease Cardiovascular History: Reports: Hx Angina, Hx Hypertension - now controlled Denies: Hx Congestive Heart Failure, Hx Deep Vein Thrombosis, Hx Myocardial Infarction, Hx Pacemaker/ICD Respiratory History: Denies: Hx Asthma, Hx Chronic Obstructive Pulmonary Disease (COPD), Hx Lung Cancer, Hx Pneumonia, Hx Pulmonary Embolism GI History: Denies: Hx Gall Bladder Disease, Hx Gastrointestinal Bleed, Hx Ulcer, Hx Urosepsis History: Denies: Hx Kidney Stones, Hx Renal Disease Sensory History: Reports: Hx Contacts or Glasses Denies: Hx Hearing Aid Opthamlomology History: Reports: Hx Contacts or Glasses Neurological History: Denies: Hx Dementia, Hx Migraine, Hx Seizures, Hx Transient Ischemic Attacks (TIA) Psychiatric History: Reports: Hx Anxiety Denies: Hx Depression, Hx Schizophrenia, Hx Bipolar Disorder - Surgical History Surgery Procedure, Year, and Place: colonscopy x2; wisdom teeth Hx Anesthesia Reactions: No Infectious Disease History: No Infectious Disease History: Denies: Hx Clostridium Difficile, Hx Hepatitis, Hx Human Immunodeficiency Virus (HIV), Hx of Known/Suspected MRSA, Hx Shingles, Hx Tuberculosis, Hx Known/ Suspected VRE, Hx Known/Suspected VRSA, History Other Infectious Disease, Traveled Outside the [place] in Last 30 Days - Family History Known Family History: Positive: Cardiac Disease - Mother. , Hypertension - father, Blood Disorder - Possible bleeding disorder in father, but at the time he had colon CA, Other - CA - father. Negative: Seizure Disorder - Social History Occupation: Employed Full-time Lives: With Family Alcohol Use: Occasionally Alcohol Amount: 1 or 2/month Hx Substance Use: No Substance Use Type: Reports: None Hx Tobacco Use: No Smoking Status (MU): Never Smoked Tobacco Have You Smoked in the Last Year: No Review of Systems Positive: Palpitations, Chest Pain Positive: Shortness Of Breath All Other Systems Reviewed And Are Negative: Yes Physical Exam Triage Information Reviewed: Yes Vital Signs On Initial Exam: Initial Vitals Temp Pulse Resp BP Pulse Ox 96.8 F 58 16 135/97 98 10/15/16 10:36 10/15/16 10:36 10/15/16 10:36 10/15/16 10:36 10/15/16 10:36 Vital Signs Reviewed: Yes Appearance: Positive: Well-Appearing, No Pain Distress Skin: Positive: Warm, Skin Color Reflects Adequate Perfusion, Dry Eyes: Positive: EOMI, MARICEL ENT: Positive: Pharynx normal, TMs normal Neck: Positive: Supple, Nontender Respiratory/Lung Sounds: Positive: Clear to Auscultation, Breath Sounds Present. Negative: Rales, Rhonchi, Wheezes Cardiovascular: Positive: RRR, Other - no gallops. Negative: Murmur, Rub Abdomen Description: Positive: Nontender, Soft, Other: - no rebound. Negative: Guarding Musculoskeletal: Positive: Strength/ROM Intact. Negative: Edema Left, Edema Right Neurological: Positive: Sensory/Motor Intact, Alert, Oriented to Person Place, Time, CN Intact II-III Psychiatric: Positive: Anxious Diagnostics - Vital Signs Vital Signs Temp Pulse Resp BP Pulse Ox 10/15/16 10:36 96.8 F 58 16 135/97 98 - Laboratory Lab Results: Lab Results 10/15/16 10/15/16 10/15/16 Range/Units 11:40 11:40 11:40 WBC 5.4 (3.5-10.8) 10^3/ul RBC 4.46 (4.0-5.4) 10^6/ul Hgb 14.1 (14.0-18.0) g/dl Hct 42 (42-52) % MCV 93 (80-94) fL MCH 32 H (27-31) pg MCHC 34 (31-36) g/dl RDW 13 (10.5-15) % Plt Count 210 (150-450) 10^3/ul MPV 8 (7.4-10.4) um3 Neut % (Auto) 62.3 (38-83) % Lymph % (Auto) 30.0 (25-47) % [place] % (Auto) 6.0 (1-9) % Eos % (Auto) 1.2 (0-6) % Baso % (Auto) 0.5 (0-2) % Absolute Neuts (auto) 3.4 (1.5-7.7) 10^3/ul Absolute Lymphs (auto) 1.6 (1.0-4.8) 10^3/ul Absolute Monos (auto) 0.3 (0-0.8) 10^3/ul Absolute Eos (auto) 0.1 (0-0.6) 10^3/ul Absolute Basos (auto) 0 (0-0.2) 10^3/ul Absolute Nucleated RBC 0 10^3/ul Nucleated RBC % 0.1 Sodium 136 (133-145) mmol/L Potassium 4.2 (3.5-5.0) mmol/L Chloride 104 (101-111) mmol/L Carbon Dioxide 23 (22-32) mmol/L Anion Gap 9 (2-11) mmol/L BUN 14 (6-24) mg/dL Creatinine 1.02 (0.67-1.17) mg/dL Est GFR ( Amer) 100.7 (>60) Est GFR (Non-Af Amer) 78.3 (>60) BUN/Creatinine Ratio 13.7 (8-20) Glucose 107 H (70-100) mg/dL Lactic Acid 1.0 (0.5-2.0) mmol/L Calcium 9.6 (8.6-10.3) mg/dL Total Bilirubin 0.60 (0.2-1.0) mg/dL AST 23 (13-39) U/L ALT 22 (7-52) U/L Alkaline Phosphatase 58 (34-104) U/L Troponin I 0.00 (<0.04) ng/mL Total Protein 7.1 (6.4-8.9) g/dL Albumin 4.3 (3.2-5.2) g/dL Globulin 2.8 (2-4) g/dL Albumin/Globulin Ratio 1.5 (1-3) Result Diagrams: 10/15/16 11:40 10/15/16 11:40 Lab Statement: Any lab studies that have been ordered have been reviewed, and results considered in the medical decision making process. - Radiology CXR Xray Interpretation: No Acute Changes Radiology Interpretation Completed By: ED Physician - EKG EK Cardiac Rate: Bradycardia ST Segment: Normal Ectopy: None Chest Pain Course/Dx - Course Course Of Treatment: Discussed patient care with Dr. Mclaughlin (Hospitalist) at 1230-patient will be discharged home. Pt has a normal ekg and a normal 6 hour troponin. He has close f/u with Dr. Oswald and Dr. Zamora - Diagnoses Provider Diagnoses: Chest pain Discharge - Discharge Plan Condition: Stable Disposition: HOME Patient Education Materials: Chest Pain (ED) Referrals: [facility] PHYSICIAN REFERRAL [Outside] Additional Instructions: You should follow up with [facility] Physician Referral within the next 2-3 days. The documentation as recorded by the Taisha keller Michael accurately reflects the service I personally performed and the decisions made by , Victoria Carney MD.
--- NOTE | 2016-10-15 13:01 | RAD ---
INDICATION: Shortness of breath and chest fluttering COMPARISON: Chest x-ray dated October 11, 2016 TECHNIQUE: Single AP portable view of the chest was obtained. FINDINGS: Image quality is compromised due to the relative inferiority of a portable chest x-ray. The heart and mediastinum exhibit normal size and contour. The lungs are grossly clear. There is no evidence of a large pleural effusion. Visualized bones are normal for the patient's age. IMPRESSION: No radiographic evidence for acute cardiopulmonary abnormality on this portable chest x-ray.
== END 2016-10-15 12:44 | disposition home or self-care (01) ==
LOC: ED 10:32
DX: R07.9 Chest pain, unspecified (principal); R06.02 Shortness of breath; R00.2 Palpitations
CPT/HCPCS: 36415; 71010; 80053; 83605; 84484; 85025; 93005; 99282

== ENCOUNTER 2017-06-23 09:14 | Emergency (ER) | payer BC ==
[2017-06-23 09:22] VITALS: BP 126/77
[2017-06-23] MEDS ORDERED: Dexamethasone TAB* 4 MG PO ONE (09:37)
--- NOTE | 2017-06-23 09:48 | UC ---
Lower Extremity/Ankle HPI - HPI Summary HPI Summary: 47 year old male here with right foot pain for over 3 weeks. He was seen here when the pain first started and given dx of overuse injury. 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 He didnt follow up yet but he has PT appt in two weeks. No new injury. - History of Current Complaint Chief Complaint: UCLowerExtremity Stated Complaint: FOOT PAIN Time Seen by Provider: 06/23/17 09:31 Severity Initially: Mild Aggravating Factor(s): Ambulation - Allergies/Home Medications Allergies/Adverse Reactions: Allergies Allergy/AdvReac Type Severity Reaction Status Date / Time Indomethacin Allergy Severe Headache Verified 06/23/17 09:23 Ibuprofen Allergy Shortness Verified 06/23/17 09:23 of Breath Lisinopril Allergy See Comment Verified 06/23/17 09:23 Home Medications: Home Medications Acetaminophen [Acetaminophen Extra Stren] 1 tab PO Q6HR PRN 06/23/17 [History Confirmed 06/23/17] PMH/Surg Hx/FS Hx/Imm Hx Other History Of: Negative For: HIV, Hepatitis B, Hepatitis C - Surgical History Surgical History: Yes Surgery Procedure, Year, and Place: colonscopy x2, wisdom teeth - Family History Known Family History: Positive: Cardiac Disease - Mother. , Hypertension - father, Blood Disorder - Possible bleeding disorder in father, but at the time he had colon CA, Other - CA - father. Negative: Seizure Disorder - Social History Alcohol Use: Occasionally Alcohol Amount: 1 or 2/month Substance Use Type: None Smoking Status (MU): Never Smoked Tobacco Have You Smoked in the Last Year: No - Immunization History Most Recent Influenza Vaccination: 03/2017 Review of Systems Constitutional: Negative Skin: Negative Eyes: Negative ENT: Negative Respiratory: Negative Cardiovascular: Negative Gastrointestinal: Negative Genitourinary: Negative Motor: Negative Neurovascular: Negative Musculoskeletal: Negative Neurological: Negative Psychological: Negative All Other Systems Reviewed And Are Negative: Yes Physical Exam Triage Information Reviewed: Yes Vital Signs: Initial Vital Signs Temp 36.8 C 06/23/17 09:17 Pulse 57 06/23/17 09:17 Resp 16 06/23/17 09:17 BP 126/77 06/23/17 09:17 Pulse Ox 100 06/23/17 09:17 Vital Signs Reviewed: Yes Respiratory: Positive: Chest non-tender, Lungs clear, Normal breath sounds, No respiratory distress Cardiovascular: Positive: RRR, No Murmur - TTP over heels and with dorsiflexion Intact DP/PT No erythema Lower Extremity Course/Dx - Course Course Of Treatment: Right foot pain. Patient has unconfirmed h/o allergy to NSAID (he thinks he might have developed sob few days after taking NSAID). He has been taking tylenol with partial relief, so will give a dose of decadron. - Differential Dx/Diagnosis Differential Diagnosis/HQI/PQRI: Arthritis, Sprain, Strain, Other Provider Diagnoses: Foot pain. Plantar fascitis Discharge - Discharge Plan Condition: Good Disposition: HOME Patient Education Materials: Arthralgia (ED) Forms: *Work Release Referrals: Randy Oswald MD [Primary Care Provider] -
== END 2017-06-23 09:58 | disposition home or self-care (01) ==
LOC: UCEAST 09:14
DX: M72.2 Plantar fascial fibromatosis (principal); Z72.89 Other problems related to lifestyle
CPT/HCPCS: 99212; G0463; J8540